=== PATIENT | male | born 1955 | race African-American/Black ===

== ENCOUNTER 2024-03-11 09:08 | Emergency (ER) | payer BC, OTHER ==
[~2024-03-11] VITALS: Ht 182.9 cm; Wt 93.8 kg
--- NOTE | 2024-03-11 09:25 | ED.PDOC ---
HPI (NEURO) HPI Comments 69 year old male presents to the ED with chief complaint of dizziness. Patient reports that he has been experiencing dizziness with associated right sided numbness, tingling, nausea, and vomiting after drinking liquid since this morning. 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 Patient denies any LOC, headache, blurred vision, chest pain, fever, or SOB. Time Seen by MD: 09:20 Primary Care Provider: TIFFANIE Reviewed Notes: Nurses Notes, Medications, Allergies Information Source: Patient Mode of Arrival: Ambulatory Severity: Moderate Dizziness/Weakness Severity: Unable to do activities Headache Severity: None Timing: Hours Duration: Since onset Prehospital treatment: None Numbness Location: (R) Sided Onset: At rest Circumstances: Spontaneous Symptoms: Vertigo, Numbness History of: CVA Modifying factors: Nothing Past Medical History PAST MEDICAL HISTORY: CVA Surgical History: Denies all surgeries Family History Family History: Unknown Social History Smoker: Non-Smoker Alcohol: Denies ETOH Use Drugs: Denies Drug Use Lives In: Home Constitutional: denies: chills, diaphoresis, fatigue, fever, malaise, sweats, weakness, others EENTM: denies: blurred vision, double vision, ear bleeding, ear discharge, ear drainage, ear pain, ear ringing, eye pain, eye redness, hearing loss, mouth pain, mouth swelling, nasal discharge, nose bleeding, nose congestion, nose pain, photophobia, tearing, throat pain, throat swelling, voice changes, others Respiratory: denies: cough, hemoptysis, orthopnea, SOB at rest, shortness of breath, SOB with excertion, stridor, wheezing, others Cardiovascular: denies: chest pain, dizzy spells, diaphoresis, Dyspnea on exertion, edema, irregular heart beat, left arm pain, lightheadedness, palpitations, PND, syncope, others Gastrointestinal: reports: nausea, vomiting; denies: abdomen distended, abdominal pain, blood streaked bowels, constipated, diarrhea, dysphagia, difficulty swallowing, hematemesis, melena, poor appetite, poor fluid intake, rectal bleeding, rectal pain, others Genitourinary: denies: burning, dysuria, flank pain, frequency, hematuria, incontinence, penile discharge, penile sore, pain, testicle pain, testicle swelling, urgency, others Neurological: reports: dizziness, right sided numbness, tingling; denies: faint ing, headache, left sided numbness, left sided weakness, numbness, paresthesia, pre-existing deficit, right sided weakness, seizure, speech problems, tremors, weakness, others Musculoskeletal: denies: back pain, gout, joint pain, joint swelling, muscle pain, muscle stiffness, neck pain, others Integumetry: denies: bruises, change in color, change in hair/nails, dryness, laceration, lesions, lumps, rash, wounds, others Allergic/Immunocompromised: denies: Difficulty Healing, Frequent Infections, Hives, Itching, others Hematologic/Lymphatic: denies: anemia, blood clots, easy bleeding, easy bruising, swollen glands, others Endocrine: denies: excessive hunger, excessive sweating, excessive thirst, excessive urination, flushing, intolerance to cold, intolerance to heat, unexplained weight gain, unexplained weight loss, others Psychiatric: denies: anxiety, bipolar disorder, depression, hopeless, panic disorder, schizophrenia, sleepless, suicidal, others All Other Systems: Reviewed and Negative Physical Exam General Appearance: Moderate Distress, Normal HEENT: Normal ENT Inspection, PERRL/EOMI Neck: Full Range of Motion, Non-Tender, Normal, Normal Inspection Respiratory: Chest Non-Tender, Lungs Clear, No Accessory Muscle Use, No Respiratory Distress, Normal Breath Sounds Cardiovascular: No Edema, No JVD, No Murmur, No Gallop, Normal Peripheral Pulses, Regular Rate/Rhythm Breast Exam: Deferred Gastrointestinal: No Organomegaly, Non Tender, No Pulsatile Mass, Normal Bowel Sounds, Soft Genitalia: Deferred Pelvic: Deferred Rectal: Deferred Extremities: Decreased range of motion (Right lower extremity), No calf tenderness, Normal capillary refill, Non-tender, No pedal edema Musculoskeletal : Apperance: Normal Neurologic: Alert, study abroad coordinator II-XII nml as Tested, Motor Weakness (Right lower extremity), Normal Mood, No Sensory Deficits Cerebellar Function: NOT DONE Reflexes: NOT DONE Skin: Dry, Normal Color, Warm Peripheral Pulses: 3+ Radial (R), 3+ Radial (L) Lymphatic: No Adenopathy Was a procedure done? Was a procedure done?: No Differential Diagnosis (SZ) Seizure: Psychogenic Seizure, Closed Head Injury, CVA/TIA X-Ray, Labs, Meds, VS Vital Signs Date Time Temp Pulse Resp B/P (MAP) Pulse Ox O2 Delivery O2 Flow Rate FiO2 03/11/24 10:55 163/87 03/11/24 10:54 97.5 76 18 163/87 (112) 96 97.5 03/11/24 09:26 97.8 64 20 162/106 (124) 97 Lab Test 03/11/24 09:27 Range/Units White Blood Count 7.6 4.4-10.8 10^3/uL Red Blood Count 4.63 4.5-5.90 10^6/uL Hemoglobin 11.7 L 13.5-17.5 g/dL Hematocrit 37.3 L 41.0-53.0 % Mean Corpuscular Volume 80.6 80.0-100.0 fL Mean Corpuscular Hemoglobin 25.2 L 28.0-32.0 pg Mean Corpuscular Hemoglobin Concent 31.3 L 32.0-36.0 g/dL Red Cell Distribution Width 20.6 H 11.8-14.3 % Platelet Count 426 140-450 10^3/uL Mean Platelet Volume 6.4 L 6.9-10.8 fL Neutrophils (%) (Auto) 63.4 37.0-80.0 % Lymphocytes (%) (Auto) 25.6 10.0-50.0 % Monocytes (%) (Auto) 8.7 0.0-12.0 % Eosinophils (%) (Auto) 1.7 0.0-7.0 % Basophils (%) (Auto) 0.6 0.0-2.0 % Neutrophils # (Auto) 4.8 1.6-8.6 10 ^3/uL Lymphocytes # (Auto) 1.9 0.4-5.4 10 ^3/uL Monocytes # (Auto) 0.7 0-1.3 10 ^3/uL Eosinophils # (Auto) 0.1 0-0.8 10 ^3/uL Basophils # (Auto) 0 0-0.2 10 ^3/uL Nucleated Red Blood Cells 0.0 % Sodium Level 141 136-145 mmol/L Potassium Level 3.8 3.5-5.1 mmol/L Chloride Level 111 H 98-107 mmol/L Carbon Dioxide Level 24 20-31 mmol/L Anion Gap 6 5-15 Blood Urea Nitrogen 10 9-23 mg/dL Creatinine 0.98 0.700-1.30 mg/dL Glomerular Filtration Rate Calc 82 >90 mL/min BUN/Creatinine Ratio 10.2 10.0-20.0 Serum Glucose 113 H 74-106 mg/dL Calcium Level 9.8 8.7-10.4 mg/dL Patient alert. Unable to ambulate without falling. Blood pressure elevated. Answering all questions. WBC within normal limits. History of stroke. CT of the head reviewed does not show any acute changes. Possibly will need MRI. Spoke with [facility] physician. Reviewed his previous visit. Explained to the patient. Continue cardiac monitoring. EKG reviewed does not show any acute changes. CT Head: FINDINGS: There is sulcal and ventricular prominence. The brain otherwise shows normal morphology and lawrence-white matter differentiation, without intracranial hemorrhage, extra-axial fluid collection, mass effect or acute large vessel infarct.The basal cisterns are patent. The skull and visible facial bones are intact. The paranasal sinuses, mastoid air cells and middle ear cavities are well-aerated. The soft tissues of the scalp are unremarkable. IMPRESSION: No acute intracranial abnormality. Images Reviewed?: Images reviewed and evaluated by me Time of 1ST Reevaluation: 09:57 Reevaluation 1ST: Unchanged Patient Education/Counseling: Diagnosis, Treatment Family Education/Counseling: No Family Present Departure 1 Departure Time of Disposition: 09:58 Impression: Primary Impression: Hypertensive urgency Additional Impression: TIA (transient ischemic attack) Disposition: ADMITTED INPATIENT Admit to: Med Surg Condition: Guarded Critical Care Note Critical Care Time?: Yes (45 min-critical care time only) Stability Stability form required: No Heart Score Heart Score: Heart Score Response (Comments) Value History Slightly Suspicious 0 EKG Normal 0 Age >65 2 Risk Factors 1 or 2 risk factors 1 Troponin Normal limit 0 Total 3 I personally scribed for MANSI BAILEY MD ([email or web address]) on 03/11/24 at 09:25. Electronically submitted by Doron Parmar ([email or web address]). I personally scribed for MANSI BAILEY MD ([email or web address]) on 03/11/24 at 10:57. Electronically submitted by Doron Parmar ([email or web address]). MANSI BAILEY MD Mar 11, 2024 09:25
[2024-03-11 09:46] LABS: Basophils # (auto) 0 10 ^3/uL (0-0.2); Basophils % (auto) 0.6 % (0.0-2.0); Eosinophils # (auto) 0.1 10 ^3/uL (0-0.8); Eosinophils % (auto) 1.7 % (0.0-7.0); Hematocrit 37.3 % (41.0-53.0); Hemoglobin 11.7 g/dL (13.5-17.5); Lymphocytes # (auto) 1.9 10 ^3/uL (0.4-5.4); Lymphocytes % (auto) 25.6 % (10.0-50.0); Mean Corpuscular Hemoglobin 25.2 pg (28.0-32.0); Mean Corpuscular Hgb Conc. 31.3 g/dL (32.0-36.0); Mean Corpuscular Volume 80.6 fL (80.0-100.0); Monocytes # (auto) 0.7 10 ^3/uL (0-1.3); Monocytes % (auto) 8.7 % (0.0-12.0); Neutrophils # (auto) 4.8 10 ^3/uL (1.6-8.6); Neutrophils % (auto) 63.4 % (37.0-80.0); Platelet Count (auto) 426 10^3/uL (140-450); Red Blood Cells 4.63 10^6/uL (4.5-5.90); Red Cell Distribution Width 20.6 % (11.8-14.3); White Blood Cell 7.6 10^3/uL (4.4-10.8)
[2024-03-11 09:56] LABS: Potassium 3.8 mmol/L (3.5-5.1); Sodium 141 mmol/L (136-145)
[2024-03-11 09:57] LABS: Anion Gap 6 (5-15); Calcium 9.8 mg/dL (8.7-10.4); Carbon Dioxide 24 mmol/L (20-31)
[2024-03-11 10:02] LABS: BUN/Creatinine Ratio 10.2 (10.0-20.0); Blood Urea Nitrogen 10 mg/dL (9-23)
--- NOTE | 2024-03-11 10:20 | DVH ---
CT HEAD WITHOUT CONTRAST INDICATION: cva EXAM DATE: 03/11/2024 09:29 AM COMPARISON: None RADIATION DOSE: CTDIvol: 48.33 mGy, DLP: 934.88 mGy*cm PROCEDURE: CT scans of the head were obtained from the vertex to the skull base. Sagittal and coronal reconstructions were provided. All CT scans at this medical facility are performed using dose modulation techniques as appropriate t o a performed exam including the following: Automated exposure control was utilized; adjustment of th e MA and/or KV according to patient size; and use of iterative reconstruction technique. FINDINGS: There is sulcal and ventricular prominence. The brain otherwise shows normal morphology a nd lawrence-white matter differentiation, without intracranial hemorrhage, extra-axial fluid collection, mass effect or acute large vessel infarct.The basal cisterns are patent. The skull and visible facial bones are intact. The paranasal sinuses, mastoid air cells and middle ear cavities are well-aerated. The soft tissues of the scalp are unremarkable. IMPRESSION: No acute intracranial abnormality.
[2024-03-11 10:37] LABS: Chloride 111 mmol/L (98-107); Glucose 113 mg/dL (74-106)
[2024-03-11 10:54] VITALS: BP 163/87; PULSE 76; RESP 18; TEMP 97.5; O2SAT 96
[2024-03-11] MEDS: cloNIDine HCL 0.1 MG TAB PO ONE (10:55)
--- NOTE | 2024-03-11 11:06 | DVHDS2 ---
New Physician D'charge PN Admitting Diagnosis Admitting Diagnosis dizziness Discharge Diagnosis vertigo Operations or Procedures none Reason(s) For Hospitalization Surgery Hospital Course 69 M who comes to ER with dizziness. He states he started feeling dizzy and nauseous earlier this AM. When he arrived to the ER is BP was 160/100 and he was given clonidine with improvement. HIs CBC was unremarkable and chemistry was also unremarkable. Head ct showed no acute findings. HE was treated with meclizine and his symptoms improved, Patient has a hx of CVA with R sided deficits from before. Hemodynamically he is stable, has no focal deficits, lab data is nml with negative head ct and patient ambulating on his own at baseline with no issues thus the patient will be dc home. Discussed with ER physician and all parties in agreement with plan. Instructed to return to ER or call 911 should his symptoms worsen. Treatment Plan Discharge Condition of Discharge Good Disposition Home Discharge Instructions Diet: Cardiac 2g Na,low cholest (2 gm sodium, low cholesterol) Activity: No Restrictions, As Tolerated Medications: see med sheet Follow Up Care Follow Up/Referral: pcp Discharge Statement: "Patient was advised to return to the ER or call 911 if any headaches, dizziness, shortness of breath, chest pain, abdominal pain, bleeding, fevers, or worsening of medical condition. Patient was counseled about treatment plan, medications, possible side effects, patientverbalized understanding. All questions were answered to the best of my ability. This discharge took greater then 30 minutes in planning, reviewing documentation, counseling the patient, and discussing with other team members." FUENTES LYNCH MD Mar 11, 2024 11:06
--- NOTE | 2024-03-14 10:17 | ECG ---
[facility] Test Date: 2024-03-11 Test Time: 09:42:33 Pat Name: KIERRA KATZ Department: ER Room: Gender: Office Clerk Routine: : 1955 Requested By: MANSI BAILEY Order Number: [id number] Reading MD: Tre Zabala Measurements Intervals [place] Rate: 67 P: 52 TN: 160 QRS: 11 QRSD: 92 T: 83 QT: 428 QTc: 452 Interpretive Statements Sinus rhythm Atrial premature complexes Minimal ST elevation, anterior leads Electronically Signed On 03-14-2024 13:04:35 PST by Tre Zabala Please click the below link to view image of tracing.
== END 2024-03-11 13:34 | disposition home or self-care (01) ==
LOC: ER 09:08
DX: I16.0 Hypertensive urgency (principal); G45.9 Transient cerebral ischemic attack, unspecified; R42 Dizziness and giddiness
CPT/HCPCS: 36415; 70450; 80048; 85025; 93005